=== PATIENT | female | born 1965 | race Caucasian/White ===

== ENCOUNTER 2022-11-19 11:29 | Outpatient (CLI) | payer BC, SELFPAY ==
[2022-11-19 14:13] LABS: Albumin* 4.6 g/dL (3.3-5.0); Chloride* 104 mmol/L (96-114); Potassium* 4.7 mmol/L (3.6-5.1); Sodium* 141 mmol/L (135-149)
[2022-11-19 14:15] LABS: Cholesterol* 187 mg/dL (90-199); Creatinine* 0.8 mg/dL (0.5-1.5)
[2022-11-19 14:16] LABS: Alanine Aminotransferase* 55 U/L (4-35); Alkaline Phosphatase* 72 U/L (40-150); Aspartate Amino Transferase* 35 U/L (12-35); Bilirubin Total* 0.6 mg/dL (0.1-1.5); Blood Urea Nitrogen* 19 mg/dL (7-30); Calcium* 10.3 mg/dL (8.4-10.6); Carbon Dioxide* 29 mmol/L (20-32); Estimated Glomerular Filt Rate 87 ml/min; Glucose* 115 mg/dL (60-115); HDL Cholesterol* 54 mg/dL (>=50); LDL Cholesterol Calculated 104 mg/dL (<100); Total Protein* 7.8 g/dL (6.0-8.3); Triglycerides* 147 mg/dL (40-149)
== END 2022-11-19 11:30 | disposition home or self-care (01) ==
PROVIDERS: PCP Family Medicine; Visit Provider Family Medicine
DX: Z01.419 Encounter for gynecological examination (general) (routine) without abnormal findings (principal); E78.5 Hyperlipidemia, unspecified; I10 Essential (primary) hypertension; R53.83 Other fatigue; R73.01 Impaired fasting glucose
CPT/HCPCS: 80053; 80061; 84443

== ENCOUNTER 2022-11-28 10:30 | Outpatient (CLI) | payer BC, SELFPAY ==
--- NOTE | 2022-11-28 10:45 | CRLHL7_ITS ---
For Patients: As a result of the Cures Act, medical imaging exams and procedure reports are released immediately into your electronic medical record. You may view this report before your referring provider. If you have questions, please contact your health care provider. BILATERAL DIAGNOSTIC MAMMOGRAM WITH COMPUTER-AIDED DETECTION AND TOMOSYNTHESIS RIGHT AXILLA ULTRASOUND CLINICAL HISTORY: RIGHT breast pain. COMPARISON: 04/07/2022, 01/10/2021, 07/13/2019 TECHNIQUE: Digital BILATERAL mammogram in 4 projections with computer-aided detection and tomosynthesis. Real-time ultrasound imaging of RIGHT axilla/breast with imaging documentation. BREAST COMPOSITION: The breasts are almost entirely fatty. FINDINGS: 3D CC/MLO BILATERAL mammogram images submitted. No suspicious masses or suspicious calcifications. No architectural distortion. Targeted RIGHT axillary ultrasound performed in the area of pain. Normal RIGHT axillary lymph nodes are present. No evidence of malignancy. IMPRESSION: Normal BILATERAL mammograms and normal targeted RIGHT axillary ultrasound. No evidence of malignancy. RECOMMENDATIONS: Annual BILATERAL screening mammography. BI-RADS Category 2: Benign Results and recommendations discussed with the patient. A lay language report of this examination will be provided to the patient. Dictated by Conor Aguero MD @ 11/28/2022 12:21:55 PM PT/Dictated by: Conor Aguero MD @ 11/28/2022 12:21:00 PM PT/Dictated by: Conor Aguero MD @ 11/28/2022 12:21:00 PM (Electronically Signed)
--- NOTE | 2022-11-28 11:15 | CRLHL7_ITS ---
For Patients: As a result of the Century Cures Act, medical imaging exams and procedure reports are released immediately into your electronic medical record. You may view this report before your referring provider. If you have questions, please contact your health care provider. PLEASE SEE BILATERAL DIAGNOSTIC MAMMOGRAM OF SAME DAY. CRL:aretha PT/Dictated by: Conor Aguero MD @ 11/28/2022 12:22:00 PM (Electronically Signed)
== END 2022-11-28 10:31 | disposition home or self-care (01) ==
LOC: MAMMO 10:30
PROVIDERS: PCP Family Medicine; Visit Provider Family Medicine
DX: N64.4 Mastodynia (principal); M79.621 Pain in right upper arm
CPT/HCPCS: 76642; 77066; G0279

== ENCOUNTER 2023-06-08 09:13 | Outpatient (CLI) | payer BC, SELFPAY | END 2023-06-08 09:14 | disposition home or self-care (01) | PROVIDERS: PCP Family Medicine; Visit Provider Family Medicine | DX: E11.9 Type 2 diabetes mellitus without complications (principal); R53.83 Other fatigue; E78.5 Hyperlipidemia, unspecified; R73.01 Impaired fasting glucose; E66.9 Obesity, unspecified | CPT/HCPCS: 80053; 80061 ==

== ENCOUNTER 2023-09-21 08:20 | Outpatient (CLI) | payer BC, SELFPAY | END 2023-09-21 08:21 | disposition home or self-care (01) | PROVIDERS: PCP Family Medicine; Visit Provider Family Medicine | DX: I10 Essential (primary) hypertension (principal); R53.83 Other fatigue; E11.9 Type 2 diabetes mellitus without complications; E78.5 Hyperlipidemia, unspecified | CPT/HCPCS: 80048 ==

== ENCOUNTER 2024-03-25 09:00 | Outpatient (CLI) | payer BC, SELFPAY ==
--- NOTE | 2024-03-25 08:45 | CRLHL7_ITS ---
For Patients: As a result of the Century Cures Act, medical imaging exams and procedure reports are released immediately into your electronic medical record. You may view this report before your referring provider. If you have questions, please contact your health care provider. BILATERAL SCREENING MAMMOGRAM WITH COMPUTER-AIDED DETECTION AND TOMOSYNTHESIS TECHNIQUE: CC and MLO views were obtained. These mammographic images have been obtained using full-field digital technique. These mammographic images were interpreted with the benefit of computer-aided detection. Breast Tomosynthesis was used in this interpretation. COMPARISON FILM: 11/28/22, 04/07/22, 01/10/21. FINDINGS: There are scattered areas of fibroglandular density. IMPRESSION: There is no radiographic evidence for malignancy. ASSESSMENT: BI-RADS Category 1: Negative RECOMMENDATION: Routine screening mammogram in 1 year. A lay language report of this examination will be provided to the patient. Conor Aguero M.D. Diagnostic Radiologist [email or web address] SP/Dictated by: Conor Aguero MD @ 03/28/2024 11:49:00 AM (Electronically Signed)
== END 2024-03-25 09:01 | disposition home or self-care (01) ==
LOC: MAMMO 09:00
PROVIDERS: PCP Family Medicine; Visit Provider Family Medicine
DX: Z12.31 Encounter for screening mammogram for malignant neoplasm of breast (principal)
CPT/HCPCS: 77063; 77067

== ENCOUNTER 2024-03-28 08:48 | Outpatient (CLI) | payer BC, SELFPAY ==
[2024-03-28 09:25] LABS: Clue Cells No Clue Cells Seen (None Seen); Trichomonas No Trichomonas Seen (None Seen); Yeast No Yeast Seen (None Seen)
[2024-03-28 12:03] LABS: Chlamydia DNA Amplified* NOT DETECTED (No Detected); GC DNA Amplified* NOT DETECTED (No Detected)
== END 2024-03-28 08:49 | disposition home or self-care (01) ==
PROVIDERS: PCP Family Medicine; Visit Provider Obstetrics & Gynecology
DX: E55.9 Vitamin D deficiency, unspecified (principal); F52.0 Hypoactive sexual desire disorder; Z12.4 Encounter for screening for malignant neoplasm of cervix; Z11.3 Encounter for screening for infections with a predominantly sexual mode of transmission; Z13.29 Encounter for screening for other suspected endocrine disorder
CPT/HCPCS: 82306; 84270; 84402; 84403; 84443; 86592; 86703; 86706; 86803; 87210; 87340; 87491; 87591

== ENCOUNTER 2024-06-13 09:26 | Outpatient (CLI) | payer BC, SELFPAY | END 2024-06-13 09:27 | disposition home or self-care (01) | PROVIDERS: PCP Family Medicine; Visit Provider Family Medicine | DX: E78.2 Mixed hyperlipidemia (principal); I10 Essential (primary) hypertension; E11.9 Type 2 diabetes mellitus without complications; Z79.84 Long term (current) use of oral hypoglycemic drugs | CPT/HCPCS: 80048; 80061; 84460 ==

== ENCOUNTER 2025-01-09 15:52 | Outpatient (CLI) | payer BC, SELFPAY | END 2025-01-09 15:53 | disposition home or self-care (01) | LOC: NFLDREF 01-11 01:34 | PROVIDERS: PCP Registered Nurse; Referring Provider Registered Nurse; Visit Provider Registered Nurse | DX: E78.2 Mixed hyperlipidemia (principal); I10 Essential (primary) hypertension | CPT/HCPCS: 80053; 80061 ==

== ENCOUNTER 2025-04-12 10:02 | Outpatient (CLI) | payer BC, SELFPAY | END 2025-04-12 10:03 | disposition home or self-care (01) | LOC: NFLDREF 04-16 02:34 | PROVIDERS: PCP Registered Nurse; Referring Provider Registered Nurse; Visit Provider Registered Nurse | DX: I10 Essential (primary) hypertension (principal); E78.2 Mixed hyperlipidemia; E11.9 Type 2 diabetes mellitus without complications; E55.9 Vitamin D deficiency, unspecified | CPT/HCPCS: 80053 ==

== ENCOUNTER 2025-04-26 06:29 | Day surgery (SDC) | payer BC, SELFPAY ==
[2025-04-26] VITALS (9 sets, daily range): BP systolic 115–142; BP diastolic 56–76; PULSE 78–88; RESP 12–16; TEMP 36.4–36.8; O2SAT 94–96; BMI 40.7
--- NOTE | 2025-04-26 07:08 | W.PM.H&PU ---
History & Physical Update History & Physical Update H&P Reviewed and patient assessed: No changes noted
--- NOTE | 2025-04-26 07:09 | P.ORPRC_ITS ---
Procedure Note Date of procedure: 04/26/25 Procedure: PREOPERATIVE DIAGNOSIS: 1. Left middle finger digital mucous cyst POSTOPERATIVE DIAGNOSIS: 1. Left middle finger digital mucous cyst PROCEDURE: 1. Left middle finger digital mucous cyst excision SURGEON: Jeovany Bernabe MD. SYSTEM DESIGNER: Eli Turcios P.A.-C. An regulatory assistant was critical for this case to aid in patient positioning, tissue retraction, limb manipulation/positioning, and closure. 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 She subsequently elected to proceed with surgical intervention consisting of left middle finger digital mucous cyst excision. Prior to surgery, the risks and benefits of the procedure were discussed with patient, all questions were answered, and informed consent was obtained. DESCRIPTION OF PROCEDURE: Patient was seen preoperatively and operative site was marked. Digital nerve block was performed by the medical or surgical instrument maker using 1% plain lidocaine and 0.5% plain bupivacaine. Patient was then brought to the operating room placed in supine position OR table. The operative extremity was prepped and draped in usual sterile fashion. A surgical time-out was performed confirming patient name, surgical procedure, and surgical site. Digital tourniquet was placed on the operative finger. A chevron incision was made over the dorsal ulnar aspect of the left middle finger starting proximal to the DIP joint and extending distally to the proximal aspect of the cyst. Full- thickness skin flap was developed, staying superficial to the extensor tendon and collateral ligament. The cyst was sharply dissected circumferentially and removed in its entirety with its stalk, which was traced to the DIP joint. While excising the cyst clear gelatinous fluid was noted to emanate from the cyst. The capsule in the interval between the extensor tendon and collateral ligament was sharply excised. There were no significant osteophytes to be removed. The base of the cyst was cauterized with bipolar electrocautery. The digital tourniquet was then removed and hemostasis was achieved with bipolar electrocautery. Total tourniquet time was 15 minutes. Wound was the irrigated with normal saline. Skin incision was closed with 4-0 nylon horizontal mattress sutures, and a sterile dressing was applied. Patient was then transferred to the recovery room in stable condition. POSTOPERATIVE PLAN: 1. Patient will be discharged to home day of surgery. 2. She was given instructions for wound care and finger range of motion exercises. 3. Acetaminophen and/or ibuprofen as needed for pain control. 4. Return to the clinic for follow-up evaluation in 10-14 days for wound check and suture removal.
[2025-04-26] MEDS: BUPIVACAINE 0.5% 30 ML INJECTION (07:10)
[2025-04-26] MEDS: LIDOCAINE 1% MDV INJECTION (07:10)
[2025-04-26] MEDS: ETHYL CHLORIDE 1 APPLICATION 1 APPLIC TOPICAL (07:10)
--- NOTE | 2025-04-26 07:31 | SUR.PREOP ---
0710: SAME DAY SURGERY LOCAL INJECTION SITE VERIFICATION WAS PERFORMED BY SURGEON/PA AND PATIENT PRIOR TO LOCAL ANESTHETIC BEING INJECTED TO OPERATIVE SITE.
[2025-04-26] MEDS: NEOMYCIN/BACITRACIN/POLYMYXIN B 1 APPLIC TOPICAL (08:09)
== END 2025-04-26 08:33 | disposition home or self-care (01) ==
LOC: OR 06:30
PROVIDERS: PCP Registered Nurse; Visit Provider Orthopaedic Surgery
PROC: (CPT 26160; principal; 2025-04-26 07:30)
DX: M67.442 Ganglion, left hand (principal)
CPT/HCPCS: 26160; J2003; J0665

== ENCOUNTER 2025-05-18 08:41 | Outpatient (CLI) | payer BC, SELFPAY ==
--- NOTE | 2025-05-18 10:05 | P.ANES_ITS ---
Anesthesia Charges Start Date/Time Anesthesia Start Date: 05/18/25 Anesthesia Start Time: 09:30 Stop Date/Time Anesthesia Stop Date: 05/18/25 Anesthesia Stop Time: 10:03 Coding CPT Codes CPT Codes: HAKEEM LWR INTST NDSC NOS - [id number] ([id number]) P2 - PATIENT W/MILD SYST DISEASE, QK - DIRECTOR OF INSTRUCTION 2-4 CNCRNT ANES PROC, QX - ENGRAVER LETTERING SVC W/ MD MED DIRECTION
--- NOTE | 2025-05-18 10:05 | W.ANESCHARGE ---
Anesthesia Charges Start Date/Time Anesthesia Start Date: 05/18/25 Anesthesia Start Time: 09:30 Stop Date/Time Anesthesia Stop Date: 05/18/25 Anesthesia Stop Time: 10:03 Coding CPT Codes CPT Codes: HAKEEM LWR INTST NDSC NOS - [id number] ([id number]) P2 - PATIENT W/MILD SYST DISEASE, QK - PROCESS EXPERT 2-4 CNCRNT ANES PROC, QX - TICKET TAKER SVC W/ MD MED DIRECTION
--- NOTE | 2025-05-18 11:10 | P.ANES_ITS ---
Anesthesia Charges Start Date/Time Anesthesia Start Date: 05/18/25 Anesthesia Start Time: 09:30 Stop Date/Time Anesthesia Stop Date: 05/18/25 Anesthesia Stop Time: 10:03 Coding CPT Codes CPT Codes: HAKEEM LWR INTST NDSC NOS - [id number] ([id number]) P2 - PATIENT W/MILD SYST DISEASE, QK - OUTSOLE MOLDER 2-4 CNCRNT ANES PROC, QX - TOOL FILER SVC W/ MD MED DIRECTION
--- NOTE | 2025-05-18 11:10 | W.ANESCHARGE ---
Anesthesia Charges Start Date/Time Anesthesia Start Date: 05/18/25 Anesthesia Start Time: 09:30 Stop Date/Time Anesthesia Stop Date: 05/18/25 Anesthesia Stop Time: 10:03 Coding CPT Codes CPT Codes: HAKEEM LWR INTST NDSC NOS - [id number] ([id number]) P2 - PATIENT W/MILD SYST DISEASE, QK - QA SOFTWARE TESTER 2-4 CNCRNT ANES PROC, QX - RETORT UNLOADER SVC W/ MD MED DIRECTION
== END 2025-05-18 08:42 | disposition home or self-care (01) ==
LOC: OP CLINIC 08:43
PROVIDERS: PCP Registered Nurse; Visit Provider Surgery
DX: Z12.11 Encounter for screening for malignant neoplasm of colon (principal); Z86.0100 Personal history of colon polyps, unspecified; Z80.0 Family history of malignant neoplasm of digestive organs; D12.3 Benign neoplasm of transverse colon; D12.7 Benign neoplasm of rectosigmoid junction; D12.8 Benign neoplasm of rectum
CPT/HCPCS: 00811; 00812; 45385; 88305; J2704

== ENCOUNTER 2025-09-01 12:59 | Outpatient (CLI) | payer BC, SELFPAY ==
--- NOTE | 2025-09-01 13:07 | CRLHL7_ITS ---
For Patients: As a result of the Century Cures Act, medical imaging exams and procedure reports are released immediately into your electronic medical record. You may view this report before your referring provider. If you have questions, please contact your health care provider. INDICATION: BILATERAL SCREENING MAMMOGRAM, ASYMPTOMATIC 59 Y/O FEMALE COMPARISON: 03/25/2024, 11/28/2022, 04/07/2022 TECHNIQUE: Digital mammogram in CC and MLO projections including computer-aided detection (CAD) and tomosynthesis. BREAST COMPOSITION: There are scattered areas of fibroglandular density. FINDINGS: No suspicious findings. ASSESSMENT: BI-RADS 1 Negative RECOMMENDATION: Annual screening mammogram. A lay language report of this examination will be provided to the patient. Dictated by: Conor Aguero MD @ 09/04/2025 10:02:26 (Electronically Signed)
== END 2025-09-01 13:00 | disposition home or self-care (01) ==
LOC: MAMMO 13:01
PROVIDERS: PCP Family Medicine; Visit Provider Registered Nurse
DX: Z12.31 Encounter for screening mammogram for malignant neoplasm of breast (principal)
CPT/HCPCS: 77063; 77067